=== PATIENT | female | born 1945 | race Caucasian/White ===

== ENCOUNTER 2018-09-30 07:46 | Outpatient (CLI) | payer MEDICARE, OTHER ==
[2018-09-30] MEDS ORDERED: LIDOCAINE 1%-EPI 1:100K, 20ML ONE (09:25)
[2018-09-30] MEDS ORDERED: SODIUM BICARBONATE 4.0%, 5ML ONE (09:25)
[2018-09-30] MEDS ORDERED: LIDOCAINE 1%, 20ML ONE (09:25)
== END 2018-09-30 23:59 | disposition home or self-care (01) ==
LOC: CFH 07:46
PROVIDERS: ATTEND Surgery
DX: R92.0 Mammographic microcalcification found on diagnostic imaging of breast (principal)
CPT/HCPCS: 19081; 77065; 88305; J3490